=== PATIENT | female | born 1995 | race African-American/Black ===

== ENCOUNTER 2020-01-17 01:46 | Outpatient (CLI) | payer OTHER ==
[~2020-01-17] VITALS: Ht 147.3 cm; Wt 66.0 kg
[2020-01-17 01:50] VITALS: BP 114/74
[2020-01-17] MEDS ORDERED: PRENTAB9 PO (02:10)
== END 2020-01-17 04:47 | disposition home or self-care (01) ==
LOC: M LDO 01:46
PROVIDERS: ATTEND Obstetrics & Gynecology
DX: O47.1 False labor at or after 37 completed weeks of gestation (principal); Z3A.40 40 weeks gestation of pregnancy
CPT/HCPCS: 59025; 81001; 87086; G0378; G0463

== ENCOUNTER 2020-01-18 11:24 | Inpatient (IN) | payer OTHER ==
[2020-01-18] VITALS (8 sets, daily range): BP systolic 116–137; BP diastolic 70–87
[~2020-01-18] VITALS: Ht 147.3 cm; Wt 65.6 kg
[~2020-01-18 11:24] MED LIST: PRENTAB9 PO
[2020-01-18] MEDS ORDERED: PROMETHAZINE INJ 25 MG/ML VIAL (J2550) IV PRN (12:15)
[2020-01-18] MEDS ORDERED: LR 1,000 ML IV ONE (12:15)
--- NOTE | 2020-01-18 12:21 | IPNPDOC ---
Text Note Date of Service The patient was seen on 01/18/20. NOTE Patient is 24yo G 1 P 0 at 40.0wks. C/o possible LOF. + contractions since yesterday. + loss of fluid with mucous at 1000. No bleeding. Good movement. PE: VS WNL GEN NAD, Comfortable SVE: 2- SSE: Mucous, no appreciable pooling FHT: Category 1, 130s, reactive, no decels. contractions q5-10minutes. TAUS: VIANEY 13, vtx, +movement A/P: Fetus reassuring. Patient does not have rupture of membranes. However, she is likely in latent labor. Will give IVF, stadol 1mg, Phenergan 12.5mg and recheck in 2hrs. According to recheck, will then decide disposition. Traci Jackman MD Jan 18, 2020 12:21
[2020-01-18] MEDS ORDERED: BUTORPHANOL 2 MG/ML INJ (J0595) IV ONE (12:30)
[2020-01-18] MEDS ORDERED: OXYTOCIN 30 UNITS IN 0.9% NaCl 500ML IV BAG (J2590) As Ordered ONE (14:31)
[2020-01-18] MEDS ORDERED: SIMETHICONE 80 MG CHEW TAB PO PRN (15:30)
[2020-01-18] MEDS ORDERED: MOM 30ML SUSPENSION UDC PO PRN (15:30)
[2020-01-18] MEDS ORDERED: ANUSOL HC CREAM 30GM TOP PRN (15:30)
[2020-01-18] MEDS ORDERED: diphenhydrAMINE 25MG CAP PO PRN (15:30)
[2020-01-18] MEDS ORDERED: METHYLERGONOVINE MALEATE 0.2 MG TAB PO PRN (15:30)
[2020-01-18] MEDS ORDERED: CALCIUM CARBONATE 500 MG CHEW U/D PO PRN (15:30)
[2020-01-18] MEDS ORDERED: ONDANSETRON 4MG/2ML VIAL IV PRN (15:30)
[2020-01-18] MEDS ORDERED: DIBUCAINE 1% OINTMENT 30GM TOP PRN (15:30)
[2020-01-18] MEDS ORDERED: IBUPROFEN 800 MG TAB PO PRN (15:30)
--- NOTE | 2020-01-18 15:35 | HPEPDOC ---
Obstetrical History & Physical General Date of Admission Jan 18, 2020 at 14:28 History of Present Illness Patient is a 24yo at 40.0wks by LMP c/w 9wk US. C/o SROM and contractions since 10:30. No headaches or visual changes or bleeding. Good movement. Patient was kept for 2hr recheck and found to be ready for delivery. Chief Complaint: Contractions, term, LOF, term Information Provided By: Patient Care Care: Good Care Dating Final EDC: Jan 18, 2020 Final EDC by: LMP Antepartum Course Height (inches): 58 Pre- weight (lbs.): 118 Admission Weight (lbs.): 146 Change in Weight (lbs.): 28 Past Medical History Past Obstetrical History : Past Obstetrical History: [employer]img[employer] History: No pertinent history Past Medical History Medical History none Surgical History: Denies/None Family History Significant Family History: No pertinent family hx Social History Marital Status: Family situation: Spouse/partner home Psychosocial History: No pertinent psych hx * Smoker: non-smoker Alcohol: Denies Drugs: denies Abuse Violence Screening Have you been hit/kicked/slapp: No Have you been sexually assault: No Imunizations Tdap status: current Influenza Status: current Allergies Coded Allergies: No Known Allergies (Unverified , 01/18/20) Medications Scheduled No.137/Iron/Folic Acd ( Vitamin Tablet) 1 Each Tablet, 1 TAB PO DAILY Physical Examination Physical Examination GENERAL: Alert and oriented times three. BREAST: . ABDOMEN: Gravid and non-tender to touch. FETUS: Is vertex (VTX) by sterile vaginal examination (SVE). EXTREMITIES: No edema. Vital Signs/I&O Vital Signs Date Time Temp Pulse Resp B/P (MAP) Pulse Ox O2 Delivery O2 Flow Rate FiO2 01/18/20 13:18 98.4 65 18 131/81 (98) Laboratory Data 24H LABS Laboratory Tests 2 01/18/20 14:31: Serology Scanned Report Hepatitis B Testing Pertinent Laboratoy Data Blood Type: O+ RBC Antibody Screen: Negative HIV: Negative Hepatitis B: Negative Rapid Plasma Reagin: Nonreactive Rubella: Immune Varicella: Nonreactive Chlamydia/Gonorrhea: Negative Group B Streptococcus: Negative Glucose Tolerance Test: 148 (83, 137, 95, 107) Anatomy Ultrasound Ultrasound Date: Aug 30, 2019 Placenta Location: Posterior Normal Anatomy: Yes Placenta Previa: No Estimated Weight (grams): 282 Steroid Therapy Steroid Therapy: No Vaginal Examination Dilation: complete Effacement: 100% Station: +1, +2 Presentation: Cephalic presentation Assessment Heart Rate (FHR): 130 Variability: Moderate Accelerations: Positive Decelerations: None Tocometer Contractions: Yes Frequency: every 1-3 min. Multi-drug resistant Organism: No history of MDRO Assessment/Plan Assessment Patient is a 24yo at 40.0wks by LMP c/w 9wk US. Admit for active labor and expect delivery by . Pain management per patient preference, which was discussed with her. I discussed risks of with patient of failure with section, distress, bleeding, infection, , vaginal or perineal or neighboring organ tear. Currently, fetus is reassuring. GBS is negative, no need for antibiotics. Plan Admit and orient. Personnel Arbitrator and consent. Diet: Clears. Group B Streptococcus (GBS) negative. Labs and intravenous (IV) per unit protocol. Lactated Ringers (LR): at 125 mL/hr. Anticipate normal spontaneous delivery (). C-S as appropriate. Pain management per patient Traci Jackman MD Jan 18, 2020 15:35
--- NOTE | 2020-01-18 15:39 | DNPDOC ---
[facility] Delivery Note Delivery Note DATE OF DELIVERY: 01/18/2020 PREDELIVERY DIAGNOSIS: 40-0/7 weeks' gestation and labor. POST DELIVERY DIAGNOSIS: Delivered. PROCEDURE: Spontaneous vaginal delivery. BAND ATTACHER: Dr. Jackman ANESTHESIA: None. ESTIMATED BLOOD LOSS: 300 mL. FINDINGS: 2816gm girl infant, Score 8/9, nuchal cord times 1. DELIVERY SUMMARY: Patient is a 24-year-old 1 now para 1 who was admitted to labor and delivery for active labor for 4hours. Patient SROM clear around 1030. Baby girl head was delivered without difficulty over intact perineum in OA position at 1445. The nose and mouth were bulb suctioned. x1 loose nuchal cord was noted and reduced. The shoulders were then delivered without difficulty. Cord was then clamped x2 and cut. Infant was handed to pediatric team for repetitive decels. Pitocin bolus was started. Perineum and vagina was inspected and found to have bilateral vaginal laceration. This was repaired with 1% lidocaine 8cc with 2-0 chromic. The placenta was then delivered at [03:38] spontaneously intact. Cord had a 3 vessel cord. EBL was 250mL. The vagina and perineum were reinspected and no further lacerations were found and hemostasis was good. Fundus was firm. Patient tolerated delivery well. Traci Jackman MD Jan 18, 2020 15:39
[2020-01-18 15:40] LABS: BASO % 0.1 % (0.0-1.0); EOS # 0.1 10^3/uL (0.0-0.5); EOS % 0.9 % (0.0-3.0); HEMATOCRIT 39.5 % (36.0-47.0); HEMOGLOBIN 13.4 g/dl (12.0-15.5); LYMPH # 2.6 10^3/uL (1.5-5.0); LYMPH % 34.5 % (24.0-44.0); MEAN CORPUSCULAR HEMOGLOBIN 30.2 pg (27.0-33.0); MEAN CORPUSCULAR HGB CONC 33.9 g/dl (32.0-36.5); MEAN CORPUSCULAR VOLUME 89.2 fl (80.0-96.0); MONO # 0.6 10^3/uL (0.0-0.8); MONO % 7.9 % (0.0-5.0); NEUTROPHILS # 4.2 10^3/uL (1.5-8.5); NEUTROPHILS % 55.4 % (36.0-66.0); PLATELET COUNT, AUTOMATED 152 10^3/uL (150-450); RED BLOOD COUNT 4.43 10^6/uL (4.00-5.40); WHITE BLOOD COUNT 7.6 10^3/uL (4.0-10.0)
[2020-01-18] MEDS ORDERED: LIDOCAINE 1% MDV 20ML VIAL INFIL ONE (15:45)
[2020-01-18] MEDS ORDERED: OXYTOCIN DRIP 30 UNITS in IV 1 EA IV SCH (15:45)
[2020-01-18 16:28] LABS: CORD GAS ABE A -6.3; CORD GAS ABE V -7.3; CORD GAS HCO3 A 21.2 MEQ/L; CORD GAS HCO3 V 18.9 MEQ/L; CORD GAS O2 SAT A 85.2 %; CORD GAS O2 SAT V 80.7 %; CORD GAS PCO2 A 48.9 mmHg; CORD GAS PCO2 V 40.4 mmHg; CORD GAS PH A 7.255 UNITS; CORD GAS PH V 7.287 UNITS; CORD GAS PO2 A 46.6 mmHg; CORD GAS PO2 V 39.9 mmHg; CORD GAS SBC A 19.1 MEQ/L; CORD GAS SBC V 18.3 MEQ/L; CORD GAS TCO2 A 22.7 MEQ/L; CORD GAS TCO2 V 20.1 MEQ/L
[2020-01-18] MEDS: DOCUSATE SODIUM 100 MG CAP PO SCH (20:27)
--- NOTE | 2020-01-19 02:30 | IPNPDOC ---
Progress Note Date of Service: Jan 19, 2020 Day#: 1 Progress Note SUBJECT: Patient is a 24-year-old 1 now Para 1 status post uncomplicated spontaneous vaginal delivery with post vaginal laceration and repair, doing well day # 1. She has been ambulating, voiding spontaneously without issue and tolerating regular diet. Breast feeding without issue. Reports lochia is li ke a normal period. Patient is ambulating well. Reports some cramping with . Having some mild soreness only in back and perineum. OBJECTIVE: VITAL SIGNS: Within normal limits, afebrile. GENERAL: No acute distress HEENT: MMM BREAST: Nontender, no erythema CARDIOVASCULAR EXAMINATION: RRR RESPIRATORY EXAMINATION: Bilaterally clear ABDOMINAL EXAMINATION: Soft, appropriate tenderness, nondistended, fundus -2 PERINEUM: Intact, minimal lochia EXTREMITIES: no edema, nontender ASSESSMENT: Patient is a 24-year-old 1 now Para 1 status post uncomplicated spontaneous vaginal delivery with post vaginal laceration and repair, doing well day # 1. Vitals within normal limits, afebrile, hemodynamically stable with no evidence of infection. PLAN: 1. Continue care. 2. Tylenol and Motrin for pain. 3. Encourage breast feeding and ambulation. VS[facility]O, [facility] Vital Signs/I&O Vital Signs Date Time Temp Pulse Resp B/P (MAP) Pulse Ox O2 Delivery O2 Flow Rate FiO2 01/18/20 13:18 98.4 65 18 131/81 (98) Laboratory Data 24H LABS Laboratory Tests 2 01/18/20 12:30: Immature Granulocyte % (Auto) 1.2, Neutrophils (%) (Auto) 55.4, Lymphocytes (%) (Auto) 34.5, Monocytes (%) (Auto) 7.9H, Eosinophils (%) (Auto) 0.9, Basophils (%) (Auto) 0.1, Neutrophils # (Auto) 4.2, Lymphocytes # (Auto) 2.6, Monocytes # (Auto) 0.6, Eosinophils # (Auto) 0.1, Basophils # (Auto) 0.0, Nucleated Red Blood Cells % (auto) 0.0 01/18/20 14:31: Serology Scanned Report Hepatitis B Testing CBC/BMP Laboratory Tests 01/18/20 12:30 Traci Jackman MD Jan 18, 2020 15:50
[2020-01-19 06:00] VITALS: BP 125/77
[2020-01-19] MEDS: DOCUSATE SODIUM 100 MG CAP PO SCH ×2 (07:39→21:12)
[2020-01-19] MEDS: PRENATAL VITAMINS CHEWABLE TABLET PO SCH (07:48)
[2020-01-19] MEDS: ACETAMINOPHEN 500 MG TAB PO PRN (08:55)
[2020-01-19] MEDS ORDERED: LIDOCAINE 1% MDV 20ML VIAL As Ordered ONE (11:51)
[2020-01-19 18:00] VITALS: BP 114/58
[2020-01-20 06:00] VITALS: BP 124/73
--- NOTE | 2020-01-20 07:04 | OBDS ---
[facility] Obstetrical Discharge Sum. Obstetrical Discharge Summary : 1 Term: 1 Livin VDRL: Non-Reactive Rh: Positive Rubella: Immune Labor Precipitous Delivery Uncomplicated Sex: Female Weight: grams (2816) Anesthesia: Local Anesthesia A/P, Post Course List any complications Admission diagnosis: Active Labor, Term Discharge diagnosis: Condition at Discharge: Stable Discharge Instructions: Home Activity: Ad lacie with pelvic rest Diet: Regular Medications: As received during 36wk visit Follow-up: 6wks Other: None HOSPITAL COURSE: Patient was admitted for active labor. She had an uncomplicated with bilateral labial lacerations repaired. Her course was uncomplicated and patient discharged home on day #2. Traci Jackman MD Jan 18, 2020 15:41 CARMELLA ROME DO Jan 19, 2020 11:49
--- NOTE | 2020-01-20 07:04 | IPNPDOC ---
Progress Note Date of Service: Jan 20, 2020 Day#: 2 Progress Note SUBJECT: Patient is a 24 yo S/P ppd #2. patient without concerns tod ay. She has been ambulating, voiding spontaneously without issue and tolerating regular diet. Breast feeding without issue. Reports lochia is like a normal period. undecided on contraceptive options at this time. OBJECTIVE: VITAL SIGNS: Within normal limits, afebrile. Alert and oriented times three. Breath sounds clear to auscultation. Heart rate: Regular rate and rhythm, no murmurs, rubs or gallops. Abdomen: Fundus firm at U-2. Soft, NTTP. [Minimal] lochia. A/P ppd #2, doing well. encourage bf, discussed contraceptive options. recommend 12months prior to next . con leave wyatt given. d/c home today. DO Marlyn VS, I&O, 24H, Fishbone Vital Signs/I&O Vital Signs Date Time Temp Pulse Resp B/P (MAP) Pulse Ox O2 Delivery O2 Flow Rate FiO2 01/20/20 06:00 98.8 87 18 124/73 (90) 01/19/20 18:00 100 Room Air CARMELLA ROME DO Jan 20, 2020 07:04
[2020-01-20] MEDS: DOCUSATE SODIUM 100 MG CAP PO SCH (07:56)
[2020-01-20] MEDS: PRENATAL VITAMINS CHEWABLE TABLET PO SCH (07:56)
[2020-01-20] MEDS: ACETAMINOPHEN 500 MG TAB PO PRN (08:58)
== END 2020-01-20 12:35 | disposition home or self-care (01) | DRG 807 ==
LOC: M LDO 11:24 → M LDI 14:28 → M OBS 17:20
PROVIDERS: ADMIT Obstetrics & Gynecology; ATTEND Obstetrics & Gynecology
PROC: 10E0XZZ Delivery of Products of Conception, External Approach (ICD-10-PCS; principal; 2020-01-18)
PROC: 0HQ9XZZ Repair Perineum Skin, External Approach (ICD-10-PCS; 2020-01-18)
DX: O48.0 Post-term pregnancy (principal); Z37.0 Single live birth; Z3A.40 40 weeks gestation of pregnancy; O69.81X0 Labor and delivery complicated by cord around neck, without compression, not applicable or unspecified; O70.0 First degree perineal laceration during delivery

== ENCOUNTER 2022-08-24 22:43 | Emergency (ER) | payer OTHER ==
[~2022-08-24] VITALS: Ht 149.9 cm; Wt 64.4 kg
[2022-08-25 07:48] VITALS: BP 118/76
== END 2022-08-25 08:04 | disposition home or self-care (01) ==
LOC: M ED 22:43
DX: N93.9 Abnormal uterine and vaginal bleeding, unspecified (principal)